=== PATIENT | female | born 1975 | race Caucasian/White ===

== ENCOUNTER 2016-10-14 12:00 | Emergency (ER) | payer SELFPAY ==
[~2016-10-14] VITALS: Wt 121.0 kg
[~2016-10-14 12:00] MED LIST: ACET1TAB40 PO; ALBU8.5H5 INH; ERYT500 PO
[2016-10-15] MEDS ORDERED: ACET325T33 PO (13:25)
== END 2016-10-14 22:41 | disposition left against medical advice (07) ==
LOC: E/R 12:00
DX: Z53.21 Procedure and treatment not carried out due to patient leaving prior to being seen by health care provider (principal)

== ENCOUNTER 2016-10-15 10:40 | Emergency (ER) | payer OTHER ==
[~2016-10-15] VITALS: Ht 167.6 cm; Wt 103.0 kg
[2016-10-15 10:49] VITALS: Ht 167.6 cm; Wt 103.0 kg
[2016-10-15] MEDS ORDERED: DIPHENHYDRAMINE 50 MG INJ IV ONE (12:30)
[2016-10-15] MEDS ORDERED: SOD CHLORIDE 0.9% 1,000 ML IV STA (12:30)
[2016-10-15] MEDS ORDERED: METOCLOPRAMIDE 10 MG INJ IV STA (12:30)
--- NOTE | 2016-10-15 12:42 | ERD ---
ER Documentation Chief Complaint Date/Time DATE: 10/15/16 TIME: 12:39 Chief Complaint pt bib self with c/o "headache" due to sickle cell dx HPI This is a 40-year-old female stating she has a history of sickle cell disease presenting to the emergency room complaining of a headache for the past 3 days. Patient describes the headache as a tight band around her head in the occipital region radiating to the front. Patient states constant moderate in severity. Patient states that she has not tried any medications for this. She states in the past she has Tylenol and codeine but she ran out of that. She admits to having mild nausea and photophobia. Denies any neuro deficits, confusion or slurred speech ROS All systems reviewed and are negative except as per history of present illness. Medications Home Meds Active Scripts Acetaminophen* (Tylenol*) 325 Mg Tablet, 2 TAB PO Q4 Y for PAIN AND OR ELEVATED TEMP, #30 TAB Prov:GURU LUCERO PA-C 10/15/16 Acetaminophen with Codeine (Acetaminophen-Cod #3 Tablet) 1 Each Tablet, 1 TAB PO Q6H, #7 TAB Prov:LENA AGRAWAL MD 07/18/16 Erythromycin (Erythromycin) 500 Mg Tabec, 500 MG PO QID for 7 Days, TAB Prov:LENA AGRAWAL MD 07/18/16 Albuterol Sulfate* (Albuterol Sulfate* HFA) 8.5 Gm Hfa.aer.ad, 2 PUFF INH Q4 Y for SHORTNESS OF BREATH, #1 EA Prov:IBRAHIMA TAO NP 09/16/15 Allergies Allergies: Coded Allergies: Penicillins (Verified Allergy, Mild, HIVES, 07/18/16) PMhx/Soc History of Surgery: Yes (4 C SECTIONS, tubal ligation, appendectomy, cholecystectomy, D&C) Anesthesia Reaction: No Hx Neurological Disorder: No Hx Respiratory Disorders: Yes (asthma) Hx Cardiac Disorders: No Hx Psychiatric Problems: No Hx Miscellaneous Medical Probl: Yes (sickle cell, GESTATIONAL DM, FIBROIDS IN UTERUS, AMENORRHEA, ANEMIA) Hx Alcohol Use: No Hx Substance Use: No Hx Tobacco Use: No Physical Exam Vitals Vital Signs Date Time Temp Pulse Resp B/P Pulse Ox O2 Delivery O2 Flow Rate FiO2 10/15/16 10:49 98.3 84 16 128/62 98 Physical Exam GENERAL: well-developed/well-nourished, in no apparent distress, non-toxic appearing HENT: NC/AT, bilateral tympanic membrane is normal with good cone of light, nares patent, oropharynx clear without exudates EYES: Conjunctiva normal, PERRLA, EOMI, no nystagmus noted NECK: Supple, no lymphadenopathy PULM: CTA bilaterally, no rales, rhonchi, or wheezing heard CV: Normal S1S2, RRR, good capillary refill GI: Soft, non-distended, normal bowel sounds, non-tender BACK: No midline tenderness, no masses, No CVAT EXT: No clubbing, cyanosis, or edema NEURO: Alert and orientated to person, place, and time. CN II-IIX intact. Gait and coordination were normal. Hand can capper strength were equal and within normal limits SKIN: Intact, normal turgor PSYCH: Normal mood and mentation, patient denied SI Result Diagram: 10/15/16 1254 10/15/16 1254 Results 24 hrs Laboratory Tests Test 10/15/16 12:54 10/15/16 12:55 Alanine Aminotransferase (ALT/SGPT) 21IU/L Albumin 3.8g/dl Albumin/Globulin Ratio 1.05 Alkaline Phosphatase 92IU/L Anion Gap 17 Aspartate Amino Transf (AST/SGOT) 15IU/L Basophils # 0.010^3/ul Basophils % 0.3% Blood Urea Nitrogen 7mg/dl Calcium Level 8.7mg/dl Carbon Dioxide Level 25mmol/L Chloride Level 105mmol/L Creatinine 0.67mg/dl Direct Bilirubin 0.00mg/dl Eosinophils # 0.210^3/ul Eosinophils % 2.8% Globulin 3.60g/dl Glucose Level 89mg/dl Hematocrit 32.2% Hemoglobin 9.7g/dl Indirect Bilirubin 0.4mg/dl Lipase 22U/L Lymphocytes # 2.110^3/ul Lymphocytes % 24.2% Mean Corpuscular Hemoglobin 19.8pg Mean Corpuscular Hemoglobin Concent 30.1g/dl Mean Corpuscular Volume 65.8fl Mean Platelet Volume fl Monocytes # 0.610^3/ul Monocytes % 7.0% Neutrophils # 5.610^3/ul Neutrophils % 65.2% Nucleated Red Blood Cells # 0.010^3/ul Nucleated Red Blood Cells % 0.0/100WBC Platelet Count 48866^3/UL Potassium Level 3.9mmol/L Red Blood Count 4.8910^6/ul Red Cell Distribution Width 18.3% Sodium Level 143mmol/L Total Bilirubin 0.4mg/dl Total Protein 7.4g/dl White Blood Count 8.610^3/ul Urine Bilirubin NEGATIVE Urine Clarity CLEAR Urine Color LT. YELLOW Urine Glucose NEGATIVE% Urine Hemoglobin NEGATIVE Urine Ketones NEGATIVE Urine Leukocyte Esterase NEGATIVE Urine Nitrite NEGATIVE Urine Specific [place] 1.010 Urine Total Protein NEGATIVE Urine Urobilinogen 0.2 E.U./dL Urine pH 7.5 Current Medications Medications (Trade) Dose Ordered Sig/Sav Route PRN Reason Start Time Stop Time Status Last Admin Dose Admin Sodium Chloride (NS) 1,000 ml @ 1,000 mls/hr Q1H STAT IV 10/15/16 12:30 10/15/16 13:29 DC 10/15/16 13:00 Metoclopramide HCl (Reglan) 10 mg ONCE STAT IV 10/15/16 12:30 10/15/16 12:34 DC 10/15/16 13:00 Diphenhydramine HCl (Benadryl) 50 mg ONCE ONCE IV 10/15/16 12:30 10/15/16 12:34 DC 10/15/16 13:00 Procedures/MDM This is a 40-year-old female with a history of stated sickle cell disease presents with headache for 3 days. My differential diagnoses include tension, migraine, and cluster headache, overuse medication headache, subarachnoid hemorrhage, meningitis, stroke, sickle cell crisis. Patient has been here numerous times in the past for multiple complaints and her stated sickle cell disease. IV access was established, patient was given 1 L fluids, Benadryl 50 mg IV and Reglan 10 mg IV. Neurology exam was normal and I don't recommend a CT scan at this time. Patient is speaking clearly, she is ambulating well. I have a low suspicion of stroke. Patient had improvement with medications. Patient is suitable to follow-up with her primary care physician tomorrow. Strict precautions were given to return to the ER hemodynamically stable and neurovascularly intact. Prescriptions were given. Discussed to follow up with a primary care physician in the next couple days. Return to the ER if condition worsens or not improving as expected. Patient agreed and understood this plan. Departure Diagnosis: Primary Impression: Headache Headache type: tension-type Condition: Stable GURU LUCERO PA-C Oct 15, 2016 12:42
[2016-10-15 13:14] LABS: ADD UMIC NO; URINE BILIRUBIN (Dip) NEGATIVE (NEGATIVE); URINE BLOOD (Dip) NEGATIVE (NEGATIVE); URINE COLOR LT. YELLOW (YELLOW); URINE GLUCOSE (Dip) NEGATIVE (NEGATIVE); URINE KETONES (Dip) NEGATIVE (NEGATIVE); URINE LEUKOCYTE ESTERASE (Dip) NEGATIVE (NEGATIVE); URINE NITRITE (Dip) NEGATIVE (NEGATIVE); URINE TOTAL PROTEIN (Dip) NEGATIVE (NEGATIVE); URINE UROBILINOGEN (Dip) 0.2 E.U./dL (0.1-1.0)
[2016-10-15 13:24] LABS: HEMATOCRIT 32.2 % (37.0-47.0); HEMOGLOBIN 9.7 g/dl (12.0-16.0); MEAN CORPUSCULAR HEMOGLOBIN 19.8 pg (29.0-33.0); MEAN CORPUSCULAR HGB CONC 30.1 g/dl (32.0-37.0); MEAN CORPUSCULAR VOLUME 65.8 fl (82.0-101.0); PLATELET COUNT 255 10^3/UL (140-440); RED BLOOD COUNT 4.89 10^6/ul (4.20-5.40); RED CELL DISTRIBUTION WIDTH 18.3 % (11.5-14.5); WHITE BLOOD COUNT 8.6 10^3/ul (4.8-10.8)
[2016-10-15] MEDS ORDERED: ACET325T33 PO (13:25)
[2016-10-15 13:26] LABS: ALBUMIN 3.8 g/dl (3.3-4.9)
[2016-10-15 13:27] LABS: LYMPHOCYTES % 24.2 % (15.0-51.0); NEUTROPHILS % 65.2 % (39.0-77.0); POTASSIUM 3.9 mmol/L (3.5-5.1)
[2016-10-15 13:28] LABS: BASOPHILS % 0.3 % (0.0-2.0); EOSINOPHILS # 0.2 10^3/ul (0.0-0.5); EOSINOPHILS % 2.8 % (0.0-7.0); LYMPHOCYTES # 2.1 10^3/ul (0.8-2.9); MONOCYTE # 0.6 10^3/ul (0.3-0.9); NEUTROPHIL # 5.6 10^3/ul (1.6-7.5)
[2016-10-15 13:29] LABS: ALBUMIN/GLOBULIN RATIO 1.05; BILIRUBIN,INDIRECT 0.4 mg/dl (0-1.1); BILIRUBIN,TOTAL 0.4 mg/dl (0.2-1.3); CREATININE 0.67 mg/dl (0.44-1.00); TOTAL PROTEIN 7.4 g/dl (6.1-8.1)
[2016-10-15 13:30] LABS: CALCIUM 8.7 mg/dl (8.4-10.2)
[2016-10-15 14:25] VITALS: BP 108/56; PULSE 72; RESP 18; TEMP 98.2
[2016-10-15 15:55] LABS: RETICULOCYTE COUNT % 1.7 % (0.5-1.5)
== END 2016-10-15 14:25 | disposition home or self-care (01) ==
LOC: FTE 10:40
DX: R51 Headache (principal); J45.909 Unspecified asthma, uncomplicated
CPT/HCPCS: 80053; 81003; 83690; 85025; 85045; 96374; 96375; J1200; J2765; J7030; Z7502

== ENCOUNTER 2017-04-10 18:03 | Emergency (ER) | payer OTHER ==
[~2017-04-10] VITALS: Ht 167.6 cm; Wt 118.0 kg
[~2017-04-10 18:03] MED LIST changes: +ACET325T33 PO
[2017-04-10 18:07] VITALS: Ht 167.6 cm; Wt 118.0 kg
--- NOTE | 2017-04-10 18:21 | ERD ---
ER Documentation Chief Complaint Date/Time DATE: 04/10/17 TIME: 18:17 Chief Complaint Pt with CHERRY, left sided weakness, dizzyness and anxious since 10 AM. HPI This is a 41-year-old female with a known history of hypertension and anxiety that presents to the emergency department complaining of an intermittent headache for the past 48 hours. The patient had been going to [employer] when her symptoms initially began. Her son stated that she started to complain of a bilateral temporal headache and numbness and tingling of her left hand and lower extremity. She had been seen in the hospital and had a CT scan performed. She was diagnosed with a TIA and discharged that day. The patient indicates her symptoms have continued to come and go and she also developed palpitations, anxiousness with no shortness of breath or chest pressure that occurred just prior to arrival. Her son indicates she has had multiple similar symptoms in the past when she feels very anxious and does not take any medication for her anxiety. She denies any fever shaking or chills. She states this is not the worst headache of her life and again it is bilateral pulsating over the temporal region. The patient is still complaining of numbness and tingling of her left and right lower extremity for the past 2 days ROS All systems reviewed and are negative except as per history of present illness. Medications Home Meds Discontinued Scripts Acetaminophen* (Tylenol*) 325 Mg Tablet, 2 TAB PO Q4 Y for PAIN AND OR ELEVATED TEMP, #30 TAB Prov:GURU LUCERO PA-C 10/15/16 Acetaminophen with Codeine (Acetaminophen-Cod #3 Tablet) 1 Each Tablet, 1 TAB PO Q6H, #7 TAB Prov:LENA AGRAWAL MD 07/18/16 Erythromycin (Erythromycin) 500 Mg Tabec, 500 MG PO QID for 7 Days, TAB Prov:LENA AGRAWAL MD 07/18/16 Albuterol Sulfate* (Albuterol Sulfate* HFA) 8.5 Gm Hfa.aer.ad, 2 PUFF INH Q4 Y for SHORTNESS OF BREATH, #1 EA Prov:IBRAHIMA TAO NP 09/16/15 Allergies Allergies: Coded Allergies: Penicillins (Verified Allergy, Mild, HIVES, 04/10/17) PMhx/Soc History of Surgery: Yes (4 C SECTIONS, tubal ligation, appendectomy, cholecystectomy, D&C) Anesthesia Reaction: No Hx Neurological Disorder: No Hx Respiratory Disorders: Yes (asthma) Hx Cardiac Disorders: No Hx Psychiatric Problems: No Hx Miscellaneous Medical Probl: Yes (sickle cell, GESTATIONAL DM, FIBROIDS IN UTERUS, AMENORRHEA, ANEMIA) Hx Alcohol Use: No Hx Substance Use: No Hx Tobacco Use: No Physical Exam Vitals Vital Signs Date Time Temp Pulse Resp B/P Pulse Ox O2 Delivery O2 Flow Rate FiO2 04/10/17 21:52 81 17 109/95 100 Room Air 04/10/17 18:07 99.7 112 18 166/80 99 Physical Exam Constitutional:Well-developed. Well-nourished. Patient sitting in a wheelchair with her eyes closed but answering all questions probably not acute respiratory distress. HEENT:Normocephalic. Atraumatic.Pupils were equal round reactive to light. Moist mucous membranes.No tonsillar exudates. Neck: No nuchal rigidity. No lymphadenopathy. No posterior cervical spine tenderness or step-offs. Respiratory: Not using accessory muscles of respiration.Lungs were clear to auscultation bilaterally. No rhonchi. No rales. No wheezing. Cardiovascular: Regular rate regular rhythm.No murmurs. No rubs were appreciated.S1, S2 normal. Distal pulses are palpable 2+ bilaterally. GI: Abdomen was soft. Nontender. Non Distended. No pulsatile abdominal masses or bruits. No rebound. No guarding. Bowel sounds were present and normal. Muscle skeletal: Full range of motion of both the upper and lower extremities bilaterally.Normal muscle tone.No assymetrical calf tenderness or swelling. Skin: No petechia, no purpura. No lesions on the palms or the soles of the feet. No maculopapular rash. NEURO: Patient was alert, awake, orientated x3.No facial droop. Gait not observed as patient stated she felt too weak to ambulate. Handgrip is equal to medical bilaterally. Romberg sign negative. No pronator drift. Speech had regular rate and rhythm. No focal neurological deficits. Result Diagram: 04/10/17219904/10/172199 Results 24 hrs Laboratory Tests Test 04/10/17 22:00 White Blood Count 13.310^3/ul Red Blood Count 5.1910^6/ul Hemoglobin 9.8g/dl Hematocrit 32.6% Mean Corpuscular Volume 62.8fl Mean Corpuscular Hemoglobin 18.9pg Mean Corpuscular Hemoglobin Concent 30.1g/dl Red Cell Distribution Width 20.0% Platelet Count 21681^3/UL Mean Platelet Volume fl Neutrophils % 75.0% Lymphocytes % 20.0% Monocytes % 2.0% Basophils % 1.0% Nucleated Red Blood Cells % 0.0/100WBC Neutrophils # 10.010^3/ul Band Neutrophils # 10.010^3/ul Lymphocytes # 2.710^3/ul Monocytes # 0.310^3/ul Basophils # 0.110^3/ul Microcytosis 2+ Prothrombin Time 14.0Sec Prothrombin Time Ratio 1.1 INR International Normalized Ratio 1.08 Activated Partial Thromboplast Time 29.9Sec Sodium Level 141mmol/L Potassium Level 3.7mmol/L Chloride Level 101mmol/L Carbon Dioxide Level 23mmol/L Anion Gap 21 Blood Urea Nitrogen 8mg/dl Creatinine 0.78mg/dl Glucose Level 102mg/dl Calcium Level 9.5mg/dl Total Bilirubin 0.5mg/dl Direct Bilirubin 0.00mg/dl Indirect Bilirubin 0.5mg/dl Aspartate Amino Transf (AST/SGOT) 15IU/L Alanine Aminotransferase (ALT/SGPT) 29IU/L Alkaline Phosphatase 87IU/L Creatine Kinase 29IU/L Creatine Kinase Index 0.8 Creatinine Kinase MB (Mass) < 0.22ng/ml Troponin I < 0.012ng/ml B-Type Natriuretic Peptide 42PG/ML Total Protein 8.3g/dl Albumin 4.5g/dl Globulin 3.80g/dl Albumin/Globulin Ratio 1.18 Current Medications Medications (Trade) Dose Ordered Sig/Sav Route PRN Reason Start Time Stop Time Status Last Admin Dose Admin Sodium Chloride (NS) 1,000 ml @ 1,000 mls/hr Q1H STAT IV 04/10/17 21:41 04/10/17 22:40 DC 04/10/17 21:58 Aspirin (Aspirin) 325 mg ONCE STAT PO 04/10/17 21:41 04/10/17 21:43 DC 04/10/17 22:02 Ondansetron HCl (Zofran Inj) 4 mg ONCE STAT IV 04/10/17 21:41 04/10/17 21:43 DC 04/10/17 22:01 Lorazepam (Ativan) 1 mg ONCE ONCE IV 04/10/17 22:00 04/10/17 22:01 DC 04/10/17 22:01 Procedures/[facility] The patient presented to the emergency department with a subacute headache that began within weeks to months of onset. My differential diagnosis included but was not limited to chronic subdural hematoma, brain tumor, brain abscess, chronic sinusitis, temporal arteritis, temporomandibular joint syndrome, psuedotumor cerebri, glaucoma, migrane, HTN, intracranial hemorrhage or cerebral ischemia. This was not the patients worse headache of their life. The patient had a complete neurologic and fundoscopic exam performed by myself that was normal with no focal neurological deficits or retinal hemorrhage. The patient stated this headache was not severe or distinct from other headaches and the history with the physical exam findings did not likely suggest SAH. Therefore, I did not feel it was clinically necessary to perform a lumbar puncture and CSF analysis. I obtained a CT scan of the patient's head which showed no acute intracerebral hemorrhage mass-effect or midline shift. The patient mild leukocytosis with no left shift and I did feel this was likely secondary to an acute stress reaction. The patient felt very anxious with palpitations and therefore was given IV Ativan with complete resolution of her symptoms. 12 Lead EKG tracing ordered and reviewed by myself showed: Normal sinus rhythm of 91 bpm and no arrhythmia. MO interval normal. QRS duration normal. No ST segment elevation No ST segment depression. No changes consistent with acute ischemia. The patient had no focal neurological deficits on physical exam to suggest an acute cerebrovascular accident. There is no evidence of myocardial infarction. The patient stated she felt comfortable being discharged home and will follow up on an outpatient basis with her PCP as I did feel most of her symptoms resulted from an acute anxiety reaction. She did request a prescription of Ativan which was provided for the patient. She also has a primary care physician appointment tomorrow at 10 AM and was provided copies of all imaging to get to her PCP. The patient was discharged home in fair condition. They were instructed to return to the emergency department at any time if there was any worsening of their condition. The patient stated they would follow up with their PCP in the next 24-48 hours to initiate a suitable medication regimen under the care of their PCP as well as to allow their PCP to monitor any drug reactions. The patient was discharged home with prescriptions after they gave informed consent to the new medication. They were also fully informed by myself on the adverse effects and adverse drug interactions in order to provide adequate safeguards to prevent possible adverse reactions to medications. Departure Diagnosis: Primary Impression: Migraine headache Migraine type: unspecified Status migrainosus presence: without status migrainosus Intractability: not intractable Qualified Code: G43.909 - Migraine without status migrainosus, not intractable, unspecified migraine type Additional Impression: Panic attack Condition: TAMI Couch Apr 10, 2017 18:21
[2017-04-10] MEDS ORDERED: ASPIRIN 325 MG TAB PO STA (21:41)
[2017-04-10] MEDS ORDERED: ONDANSETRON 4 MG INJ IV STA (21:41)
[2017-04-10] MEDS ORDERED: SOD CHLORIDE 0.9% 1,000 ML IV STA (21:41)
[2017-04-10] MEDS ORDERED: LORAZEPAM 2 MG INJ IV ONE (22:00)
[2017-04-10 22:13] LABS: ABNORMAL IP MESSAGE 1; HEMATOCRIT 32.6 % (37.0-47.0); HEMOGLOBIN 9.8 g/dl (12.0-16.0); MEAN CORPUSCULAR HEMOGLOBIN 18.9 pg (29.0-33.0); MEAN CORPUSCULAR HGB CONC 30.1 g/dl (32.0-37.0); MEAN CORPUSCULAR VOLUME 62.8 fl (82.0-101.0); PLATELET COUNT 299 10^3/UL (140-415); RED BLOOD COUNT 5.19 10^6/ul (4.20-5.40); WHITE BLOOD COUNT 13.3 10^3/ul (4.8-10.8)
--- NOTE | 2017-04-10 22:24 | RADRPT ---
PROCEDURE: CT Head without. CLINICAL INDICATION: Numbness and headache. TECHNIQUE: The study was performed utilizing a multi-slice, multidetector CT scanner. Direct spira l 1 mm axial sections were obtained through the head without the use of intravenous contrast materia l. 1 or more of the following dose reduction techniques were utilized: Automated exposure control, adjustment of the mA and/or kV according to patient's size, iterative reconstruction technique. Co loyda and sagittal reformations were obtained. The images were reviewed on a PACS workstation. RADIATION DOSE: CTDIvol: 45.0 mGyDLP: 720.2 mGy-cm COMPARISON: No prior studies are available for comparison. FINDINGS: There is no intracranial hemorrhage, extra-axial fluid collection, mass lesion, midline shift or hyd rocephalus. The ventricles, sulci and cisterns are within normal limits. The white matter is unrem arkable. The bishop-white matter differentiation is preserved. The basal cisterns are patent. The m idline structures are intact. The orbits, calvarium and extracranial soft tissues are normal in margarette earance. The visualized paranasal sinuses, mastoid air cells and middle ear cavities are normally ae rated. IMPRESSION: 1. No acute intracranial abnormality. No intracranial hemorrhage, extra-axial fluid collection, ma ss lesion or hydrocephalous. RPTAT: HGAS .Jh Luevano MD, MD Date Time Electronically viewed and signed by .Jh Luevano MD, MD on 04/10/2017 22:24 .S/
--- NOTE | 2017-04-10 22:25 | RADRPT ---
PROCEDURE: XR Chest. CLINICAL INDICATION: Chest pain. TECHNIQUE: AP view of the chest was obtained. COMPARISON: 07/18/2016, 01/31/2016 FINDINGS: The cardiomediastinal silhouette is within normal limits. The lungs are clear. No signs of pleural f luid or pneumothorax are seen. The osseous structures and soft tissues are unremarkable. IMPRESSION: 1. No significant interval change compared to 07/18/2016. No evidence for active cardiopulmonary d isease. RPTAT: HGAS .Jh Luevano MD, MD Date Time Electronically viewed and signed by .Jh Luevano MD, on 04/10/2017 22:25 .S/
[2017-04-10 22:29] LABS: INR 1.08; PARTIAL THROMBOPLASTIN TIME 29.9 Sec (25.0-35.0); PT RATIO 1.1
[2017-04-10 22:31] LABS: ALANINE AMINOTRANSFERASE 29 IU/L (13-69); ALBUMIN 4.5 g/dl (3.3-4.9); ALBUMIN/GLOBULIN RATIO 1.18; ALKALINE PHOSPHATASE 87 IU/L (42-121); ANION GAP 21 (8-16); ASPARTATE AMINO TRANSFERASE 15 IU/L (15-46); BILIRUBIN,INDIRECT 0.5 mg/dl (0-1.1); BILIRUBIN,TOTAL 0.5 mg/dl (0.2-1.3); BLOOD UREA NITROGEN 8 mg/dl (7-20); CALCIUM 9.5 mg/dl (8.4-10.2); CARBON DIOXIDE 23 mmol/L (21-31); CHLORIDE 101 mmol/L (97-110); CREATINE KINASE 29 IU/L (23-200); CREATININE 0.78 mg/dl (0.44-1.00); GLUCOSE 102 mg/dl (70-220); POTASSIUM 3.7 mmol/L (3.5-5.1); SODIUM 141 mmol/L (135-144); TOTAL PROTEIN 8.3 g/dl (6.1-8.1)
[2017-04-10 22:37] LABS: POSITIVE DIFF @See below
[2017-04-10 22:43] LABS: B-TYPE NATRIURETIC PEPTIDE 42 PG/ML (0-125); CK-MB < 0.22 ng/ml (0.0-2.4); TROPONIN-I < 0.012 ng/ml (0.00-0.12)
[2017-04-10 23:07] LABS: BASOPHIL # 0.1 10^3/ul (0.0-0.1); LYMPHOCYTES # 2.7 10^3/ul (0.8-2.9); MONOCYTE # 0.3 10^3/ul (0.3-0.9)
[2017-04-10 23:08] LABS: MICROCYTOSIS 2+ (0-0)
[2017-04-10] MEDS ORDERED: LORA1TAB PO (23:52)
[2017-04-11 00:28] VITALS: BP 125/80; PULSE 81; RESP 17; TEMP 98.9
== END 2017-04-11 00:30 | disposition home or self-care (01) ==
LOC: E/R 18:03
DX: G43.909 Migraine, unspecified, not intractable, without status migrainosus (principal); F41.0 Panic disorder [episodic paroxysmal anxiety]; J45.909 Unspecified asthma, uncomplicated; R07.9 Chest pain, unspecified; I10 Essential (primary) hypertension
CPT/HCPCS: 70450; 71010; 80053; 82550; 82553; 83880; 84484; 85025; 85610; 85730; 93005; J2060; J2405; J7030; Z7610; 36415; 96374; 96375